=== PATIENT | female | born 1995 | race Caucasian/White ===

== ENCOUNTER → 2018-07-19 | Outpatient (REF) | payer BC ==
[~2018-07-19] MED LIST: PREN1TAB26 PO
== END ==
LOC: M LAB REF 16:37
PROVIDERS: ATTEND Nurse Practitioner Women's Health
DX: O02.1 Missed abortion (principal); Z3A.00 Weeks of gestation of pregnancy not specified

== ENCOUNTER → 2018-08-17 | Outpatient (REF) | payer BC ==
[2018-08-17 19:06] LABS: HEMATOCRIT 36.8 % (36.0-47.0); HEMOGLOBIN 13.1 g/dl (12.0-15.5); MEAN CORPUSCULAR HEMOGLOBIN 32.3 pg (27.0-33.0); MEAN CORPUSCULAR HGB CONC 35.6 g/dl (32.0-36.5); MEAN CORPUSCULAR VOLUME 90.9 fl (80.0-96.0); PLATELET COUNT, AUTOMATED 265 10^3/uL (150-450); RED BLOOD COUNT 4.05 10^6/uL (4.00-5.40)
[2018-08-17 19:28] LABS: HCG, SERUM QUANTITATIVE 2250 MIU/ML
[2018-08-18 11:31] LABS: RUBELLA IgG QUALITATIVE IMMUNE (IMMUNE)
[2018-08-18 12:00] LABS: HEPATITIS C VIRUS ABY INDEX 0.1 INDEX (<0.8)
[2018-08-18 12:01] LABS: HIV 1&2 SCREEN CENTAUR NEGATIVE (NEGATIVE)
== END ==
LOC: M LAB REF 16:43
PROVIDERS: ATTEND Nurse Practitioner Women's Health
DX: Z34.81 Encounter for supervision of other normal pregnancy, first trimester (principal)

== ENCOUNTER → 2020-08-27 | Outpatient (CLI) | payer MEDICAID, OTHER ==
[2020-08-27 21:54] LABS: GC DNA AMPLIFICATION NEGATIVE (NEGATIVE)
== END ==
LOC: M PLALAB 11:27
PROVIDERS: ATTEND Advanced Practice Midwife
DX: O34.211 Maternal care for low transverse scar from previous cesarean delivery (principal)

== ENCOUNTER → 2020-11-24 | Outpatient (CLI) | payer MEDICAID, OTHER ==
[2020-11-24 16:20] LABS: HEMATOCRIT 33.7 % (36.0-47.0); HEMOGLOBIN 11.5 g/dl (12.0-15.5); MEAN CORPUSCULAR HEMOGLOBIN 30.1 pg (27.0-33.0); MEAN CORPUSCULAR HGB CONC 34.1 g/dl (32.0-36.5); MEAN CORPUSCULAR VOLUME 88.2 fl (80.0-96.0); PLATELET COUNT, AUTOMATED 289 10^3/uL (150-450); RED BLOOD COUNT 3.82 10^6/uL (4.00-5.40); WHITE BLOOD COUNT 9.1 10^3/uL (4.0-10.0)
[2020-11-24 17:26] LABS: GC DNA AMPLIFICATION NEGATIVE (NEGATIVE)
== END ==
LOC: M PLALAB 11:13
PROVIDERS: ATTEND Obstetrics & Gynecology
DX: O34.211 Maternal care for low transverse scar from previous cesarean delivery (principal); Z3A.00 Weeks of gestation of pregnancy not specified

== ENCOUNTER → 2021-01-16 | Outpatient (REF) | payer OTHER | LOC: M SFHCWAGY 12:45 | PROVIDERS: ATTEND Obstetrics & Gynecology | DX: Z36.85 Encounter for antenatal screening for Streptococcus B (principal) ==

== ENCOUNTER → 2021-01-28 | Outpatient (CLI) | payer OTHER ==
--- NOTE | 2021-01-28 10:06 | REP ---
INDICATION: F/U UTERINE SCAR COMPARISON: None. TECHNIQUE: Transabdominal obstetrical ultrasound with color Doppler evaluation. FINDINGS: Examination demonstrates a single live intrauterine in cephalic presentation. motion is identified by technologist. Placenta is noted anterior and grade 2 without evidence for placenta previa or abruption. Amniotic fluid volume is normal. Cervix measures 4.2 cm in length and appears closed. Selected gestational age: 38 weeks 2 days with TEGAN 02/09/2021. Gestational age by current measurements 38 weeks 2 days with TEGAN 02/09/2021. FHR equals 142 beats per minute. ALECIA: 18.5 cm (7.3-23.5) Umbilical artery SD ratio: 2.22 Estimated weight 3375 grams (58thpercentile). Uterine scar could not be evaluated due to advanced age and positioning. IMPRESSION: 1. Single live advanced gestation in cephalic presentation demonstrating appropriate estimated weight and growth. 2. Uterine scar could not be evaluated. <Electronically signed by William Ann > 01/28/21 [id number]
== END ==
LOC: M WHC 07:35
PROVIDERS: ATTEND Advanced Practice Midwife
DX: O34.211 Maternal care for low transverse scar from previous cesarean delivery (principal); Z3A.38 38 weeks gestation of pregnancy

== ENCOUNTER 2021-02-16 16:59 | Inpatient (IN) | payer OTHER ==
[~2021-02-16] VITALS: Ht 167.6 cm; Wt 89.3 kg
[2021-02-16 17:18] VITALS: BP 143/74
[2021-02-16 17:34] VITALS: BP 126/60
[2021-02-16] MEDS ORDERED: LIDOCAINE 1% MDV 20ML VIAL INFIL PRN (17:35)
[2021-02-16] MEDS ORDERED: TRANEXAMIC ACID INJection 1,000 MG in NS 100 ML IV PRN (17:35)
[2021-02-16] MEDS ORDERED: CARBOPROST TROMETHAMINE 250 MCG/ML AMP IM PRN (17:35)
[2021-02-16] MEDS ORDERED: OXYTOCIN DRIP 30 UNITS in IV 1 EA IV PRN (17:35)
[2021-02-16 18:02] LABS: HEMATOCRIT 35.2 % (36.0-47.0); HEMOGLOBIN 11.7 g/dl (12.0-15.5); MEAN CORPUSCULAR HEMOGLOBIN 27.1 pg (27.0-33.0); MEAN CORPUSCULAR HGB CONC 33.2 g/dl (32.0-36.5); MEAN CORPUSCULAR VOLUME 81.5 fl (80.0-96.0); PLATELET COUNT, AUTOMATED 346 10^3/uL (150-450); RED BLOOD COUNT 4.32 10^6/uL (4.00-5.40); WHITE BLOOD COUNT 8.7 10^3/uL (4.0-10.0)
[2021-02-16 18:02] LABS: TOTAL PROTEIN,RANDOM URINE 12.1 MG/DL (0.0-12.0)
[2021-02-16 18:27] LABS: ALT/SGPT 40 U/L (12-78); BILIRUBIN,TOTAL < 0.1 MG/DL (0.2-1.0); CREATININE FOR GFR 0.56 MG/DL (0.55-1.30); GLOMERULAR FILTRATION RATE > 60.0 (>60); LDH LACTATE DEHYDROGENASE 204 U/L (84-246); URIC ACID 5.1 MG/DL (2.6-6.0)
[2021-02-16 19:24] VITALS: BP 128/73
[2021-02-16 20:58] VITALS: BP 121/57
[2021-02-16 21:49] VITALS: BP 102/56
[2021-02-16 23:08] VITALS: BP 109/52
[2021-02-17] VITALS (36 sets, daily range): BP systolic 92–148; BP diastolic 51–96
[2021-02-17] MEDS ORDERED: OXYTOCIN DRIP 30 UNITS in IV 1 EA IV SCH (03:40)
[2021-02-17] MEDS: LR 1,000 ML IV SCH ×2 (09:29→17:22)
[2021-02-17] MEDS ORDERED: diphenhydrAMINE 50MG/ML VIAL (J1200) As Ordered ONE (19:47)
[2021-02-17] MEDS ORDERED: FENTANYL 2MCG/ML ROPIVACAINE 0.2% IN 0.9% NACL 100ML IVBAG As Ordered ONE (20:17)
[2021-02-18] VITALS (11 sets, daily range): BP systolic 103–132; BP diastolic 47–64
[2021-02-18] MEDS ORDERED: REFRIGERATOR IV KEYS XX PRN (00:40)
[2021-02-18] MEDS ORDERED: ONDANSETRON 4MG/2ML VIAL IV PRN (00:40)
[2021-02-18] MEDS ORDERED: NALOXONE INJ 0.4MG/1ML VIAL (J2310 PER 1MG) IV PRN (00:40)
[2021-02-18] MEDS ORDERED: ePHEDrine SULFATE 25 MG/5 ML(5MG/ML) SYRINGE IV PRN (00:40)
[2021-02-18] MEDS ORDERED: FENTANYL/ROPIVACAINE/NACL BAG 100 ML EPIDURAL SCH (00:40)
[2021-02-18] MEDS ORDERED: diphenhydrAMINE 50MG/ML VIAL (J1200) IV PRN (00:40)
[2021-02-18] MEDS ORDERED: EPIDURAL/PCA KEYS XX PRN (00:40)
[2021-02-18] MEDS ORDERED: LACTATED RINGER'S 1000 ML IV PRN (00:40)
[2021-02-18] MEDS ORDERED: EPIDURAL COMMENT XX SCH (00:40)
[2021-02-18] MEDS: LR 1,000 ML IV SCH ×2 (00:46→00:57)
[2021-02-18] MEDS ORDERED: CALCIUM CARBONATE 500 MG CHEW U/D PO ONE (01:00)
[2021-02-18] MEDS ORDERED: METHYLERGONOVINE MALEATE 0.2 MG/ML VIAL (J2210) IM STA (03:20)
[2021-02-18] MEDS ORDERED: RHOGAM 300 MCG (1500 IU) INJ (J2790) IM SCH (03:35)
[2021-02-18] MEDS ORDERED: MEASLES,MUMPS,RUBELLA VACCINE INJ (MMR-II) (90707) SC SCH (03:35)
[2021-02-18] MEDS ORDERED: DOCUSATE SODIUM 100MG CAPSULE PO PRN (03:35)
[2021-02-18] MEDS ORDERED: METHYLERGONOVINE MALEATE 0.2 MG TAB PO PRN (03:35)
[2021-02-18] MEDS ORDERED: DIBUCAINE 1% OINTMENT 30GM TOP PRN (03:35)
[2021-02-18] MEDS ORDERED: diphenhydrAMINE 50MG/ML VIAL (J1200) IV ONE (05:00)
[2021-02-18] MEDS: PRENATAL VITAMINS CHEWABLE TABLET PO SCH (08:11)
[2021-02-18] MEDS: IBUPROFEN 600MG TAB PO PRN ×2 (08:11→15:58)
[2021-02-18] MEDS: ACETAMINOPHEN 500 MG TAB PO PRN ×2 (13:58→22:04)
[2021-02-19] MEDS: IBUPROFEN 600MG TAB PO PRN ×2 (03:04→23:23)
[2021-02-19 06:10] VITALS: BP 118/54
[2021-02-19] MEDS: PRENATAL VITAMINS CHEWABLE TABLET PO SCH (09:52)
[2021-02-19] MEDS: ACETAMINOPHEN 500 MG TAB PO PRN ×2 (09:52→16:06)
[2021-02-19 17:59] VITALS: BP 120/60
[2021-02-20 05:43] VITALS: BP 136/63
[2021-02-20] MEDS: PRENATAL VITAMINS CHEWABLE TABLET PO SCH (08:29)
[2021-02-20] MEDS: ACETAMINOPHEN 500 MG TAB PO PRN (08:29)
[2021-02-20] MEDS: IBUPROFEN 600MG TAB PO PRN (16:46)
[2021-02-20 18:00] VITALS: BP 129/63
== END 2021-02-20 14:14 | disposition home or self-care (01) | DRG 560 ==
LOC: M LDI 16:59 → M OBS 02-18 07:25
PROVIDERS: ADMIT Advanced Practice Midwife; ATTEND Advanced Practice Midwife
PROC: 10E0XZZ Delivery of Products of Conception, External Approach (ICD-10-PCS; principal; 2021-02-18)
PROC: 3E0P7VZ Introduction of Hormone into Female Reproductive, Via Natural or Artificial Opening (ICD-10-PCS; 2021-02-18)
PROC: 10907ZC Drainage of Amniotic Fluid, Therapeutic from Products of Conception, Via Natural or Artificial Opening (ICD-10-PCS; 2021-02-18)
PROC: 3E033VJ Introduction of Other Hormone into Peripheral Vein, Percutaneous Approach (ICD-10-PCS; 2021-02-18)
DX: O48.0 Post-term pregnancy (principal); O63.1 Prolonged second stage (of labor); Z37.0 Single live birth; Z3A.41 41 weeks gestation of pregnancy; O34.211 Maternal care for low transverse scar from previous cesarean delivery